=== PATIENT | female | born 1955 | race African-American/Black ===

== ENCOUNTER → 2018-07-07 | Outpatient (CLI) | payer BC, OTHER | LOC: RAD 04:24 | DX: Z12.31 Encounter for screening mammogram for malignant neoplasm of breast (principal) ==

== ENCOUNTER → 2019-07-11 | Outpatient (CLI) | payer BC, OTHER | LOC: BC 13:39 | DX: Z12.31 Encounter for screening mammogram for malignant neoplasm of breast (principal) ==

== ENCOUNTER → 2021-01-19 | Outpatient (CLI) | payer OTHER | LOC: RAD 13:42 | PROVIDERS: ATTEND Family Medicine | DX: Z12.31 Encounter for screening mammogram for malignant neoplasm of breast (principal) ==

== ENCOUNTER 2021-02-02 14:35 | Emergency (ER) | payer OTHER ==
[~2021-02-02] VITALS: Ht 162.6 cm; Wt 71.7 kg
[2021-02-02 14:37] VITALS: BP 159/71
--- NOTE | 2021-02-02 15:31 | EKG ---
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
[2021-02-02] MEDS ORDERED: MEDROLDOSEPACK PO (15:35)
== END 2021-02-02 15:35 | disposition home or self-care (01) ==
LOC: ER 14:35
DX: S46.912A Strain of unspecified muscle, fascia and tendon at shoulder and upper arm level, left arm, initial encounter (principal); I10 Essential (primary) hypertension; Z90.710 Acquired absence of both cervix and uterus; Z98.890 Other specified postprocedural states; X50.0XXA Overexertion from strenuous movement or load, initial encounter; Y93.89 Activity, other specified; Y92.090 Kitchen in other non-institutional residence as the place of occurrence of the external cause; Y99.8 Other external cause status

== ENCOUNTER 2021-06-26 18:55 | Emergency (ER) | payer OTHER ==
[~2021-06-26] VITALS: Ht 162.6 cm; Wt 70.8 kg
[~2021-06-26 18:55] MED LIST: MEDROLDOSEPACK PO
[2021-06-26] MEDS ORDERED: LISINOPRIL-HCT1 EAC2 PO (19:02)
[2021-06-26] MEDS ORDERED: ST. JOSEPH ASPI81 M1 PO (19:02)
[2021-06-26] MEDS ORDERED: SYMBICORT160 MCG/4. INH (19:02)
[2021-06-26 19:37] LABS: HEMATOCRIT 39.5 % (37.0-47.0); HEMOGLOBIN 13.1 gm/dL (12.0-15.0); MCH 28.6 pg (26.0-34.0); MCHC 33.3 g/dL (28.0-37.0); MCV 85.9 fL (80.0-100.0); RBC 4.6 mil/uL (4.20-5.00); RDW 14.9 % (10.5-14.5); WBC 7.3 thou/uL (4.0-11.0)
[2021-06-26 19:42] LABS: CREATININE 0.5 mg/dL (0.6-1.0); POTASSIUM 3.5 mmol/L (3.5-5.1)
[2021-06-26 19:48] LABS: TOTAL BILIRUBIN 0.4 mg/dL (0.2-1.0); TOTAL PROTEIN 7.8 g/dL (6.4-8.2)
[2021-06-26] MEDS ORDERED: DOXYCYCLINE 10100 MG PO (21:12)
[2021-06-26] MEDS ORDERED: ALBUTEROL2.5 MG/31 INH (21:12)
[2021-06-26] MEDS ORDERED: PREDNISONE 20 M20 MG PO (21:12)
[2021-06-26] MEDS ORDERED: NEBULIZER MISCELL (21:12)
[2021-06-26 21:47] VITALS: BP 135/69
--- NOTE | 2021-06-29 07:33 | EKG ---
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
== END 2021-06-26 21:59 | disposition home or self-care (01) ==
LOC: ER 18:55
PROVIDERS: Nurse Practitioner Family
DX: J44.1 Chronic obstructive pulmonary disease with (acute) exacerbation (principal); Z20.822 Contact with and (suspected) exposure to COVID-19; I10 Essential (primary) hypertension; Z90.710 Acquired absence of both cervix and uterus; Z79.899 Other long term (current) drug therapy; Z79.82 Long term (current) use of aspirin; Z91.013 Allergy to seafood